=== PATIENT | female | born 1985 | race Two or more races ===

== ENCOUNTER → 2019-07-09 | Outpatient (CLI) | payer OTHER | END | disposition home or self-care (01) | LOC: PRENATAL 11:00 | DX: O28.1 Abnormal biochemical finding on antenatal screening of mother (principal); O35.3XX1 Maternal care for (suspected) damage to fetus from viral disease in mother, fetus 1; O34.42 Maternal care for other abnormalities of cervix, second trimester; Z34.02 Encounter for supervision of normal first pregnancy, second trimester ==